=== PATIENT | male | born 1995 | race Caucasian/White ===

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

== ENCOUNTER 2017-01-27 21:59 | Emergency (ER) | payer OTHER ==
[~2017-01-27] VITALS: Ht 177.8 cm; Wt 68.2 kg
[2017-01-27 22:03] VITALS: BP 134/74; PULSE 82; RESP 16; O2SAT 99
--- NOTE | 2017-01-27 22:28 | ED.REPORT ---
HPI-Extremity Problem Lower Date of Service Jan 27, 2017 ED Provider: Jasper Ricardo DO Patient is a 21 year old male who presents to the ED after dropping a knife on the dorsum of his left foot. Associated symptoms include inability to move his toes. He states that the knife was clean. The patient reports that the knife slipped as he was trying to put it back into his hip holster. Nursing Notes Stated Complaint: DROPPED KNIFE ON LEFT FOOT Chief Complaint: Extremity Trauma Nursing Notes Reviewed: Yes Allergies: Coded Allergies: peanut (Verified Allergy, Severe, anaphylaxis, 07/08/16) Uncoded Allergies: ALMONDS (Allergy, Unknown, 01/24/14) Scheduled Amitriptyline (Amitriptyline) 25 Mg Tab 75 MG PO DAILY Fluoxetine (Fluoxetine) 20 Mg Capsule 20 MG PO MOWEFR Omeprazole (Omeprazole) 20 Mg Capsule.dr 20 MG PO DAILY Ranitidine (Ranitidine) 150 Mg Capsule 150 MG PO DAILY Scheduled PRN Promethazine (Promethazine) 25 Mg Tablet 25 MG PO Q6H PRN PRN For Nausea General Time Seen by MD: 22:28 Chief Complaint Foot injury left Hx Obtained From: Patient Arrived By: Walk-in Onset Occurred: Just prior to arrival Symptom Duration: Since onset Caused by: Accidental, Knife wound Location: : Foot left Quality: Painful Severity: Current: Moderate Recent Healthcare: Recent doctor visit Similar Sx Previous: No Past Medical History Past Medical History Syncope. PTSD-associated dissociative disorder. Past Surgical History None Family History Reviewed, not relevant Reports: Cancer Smoking History Never Smoker Social History Alcohol Use: Denies alcohol use Drug Use: Denies drug use Occupation Student Ambulatory Status Independent Review of Systems Review of Systems Note: +foot laceration Musculoskeletal: Reports: Extremity pain (left foot) Skin: Denies Itching, Denies Rash Complete sys rev & neg: except as marked. Respiratory: Denies: Non-productive cough, Shortness of breath Physical Exam Initial Vital Signs Vital Signs (First) Date Time Temp Pulse Resp B/P Pulse Ox O2 Delivery O2 Flow Rate FiO2 01/27/17 22:03 37.1 82 16 134/74 99 Room Air Initial VS: Reviewed Lower Extremity / Pelvis / MS: Atraumatic, Inspection NL Ankle / Foot: Neurologic intact, Vascular intact good dp pulses small 1/2cm laceration to the dorsum of the left foot flexion and extension normal General/Constitutional: Awake, Alert Respiratory / Chest: Atraumatic, Breath sounds NL, Breath sounds = bilat, No respiratory distress Cardiovascular: Heart rate NL, Regular rhythm, Heart sounds NL Skin: Color NL, No rash, Warm, Dry Neurologic: Oriented X3, Speech NL, No motor deficits, No sensory deficits Head / Eyes: Atraumatic, Normocephalic, PERRL, EOMI Psychiatric: Affect NL, Mood NL Interpretation & Diagnostics X-Ray Interpretation X-Ray Ordered: Foot left Interpretation / Wet Read by: Interpret - ED physician Interpretation: Normal exam, No fracture/dislocation Re-Eval/Medical Decision Med Decision/Clinical Course No appreciable tendon injury however Alverto states that his toe mainly the fourth toe feels weak when he extends it. I cannot see an obvious tendon laceration. The wound was irrigated and prepped and dressed. We will keep the wound open. We will place him in an sterile dressing. Tyree wrap and crutches. Keflex prophylactically and follow-up with podiatry. Re-Evaluation/Progress : Re-Evaluation/Progress Note: Discussed plan for discharge. Patient understands and agrees to plan. All questions were addressed. Counseled Regarding: Diagnosis, Lab results, Need for follow-up, When/why to return to ED Discharge & Departure Impression: Primary Impression: Foot laceration Encounter type: initial encounter Laterality: left Qualified Code: S91.312A - Laceration without foreign body, left foot, initial encounter Disposition: Home Discharge Condition All VS Reviewed: Yes Condition: Stable Patient Instructions: Crutch Instructions (ED) Additional Instructions: Take Keflex 2x a day for 5 days. You can take Tylenol/Motrin as directed for pain. Keep the wound covered and dry. Use crutches for the next 7 days until you follow up with podiatry. Call the referred printed products assembler tomorrow and let them know you have a foot laceration with possible tendon involvement. Return to the emergency department if you develop any new or concerning symptoms including signs of infection; spreading redness, swelling, discharge or increasing pain. Referrals: Liborio Edmonds DO (PCP) Collin Ingram DPM Scribe Attestation Portions of this note were transcribed by Chiquita Arias. I, Dr. Ricardo personally performed the history, physical exam and medical decision-making; I reviewed and confirmed the accuracy of the information in the transcribed note. Signed by: Chiquita Santana, 01/27/17 copies to: Liborio Edmonds DO; Collin Ingram DPM, Todd P DO Jan 27, 2017 22:28 Shantell Arias Jan 27, 2017 22:35
[2017-01-27] MEDS ORDERED: TdaP Vaccine 0.5 mL Inj IM ONE (23:00)
--- NOTE | 2017-01-28 13:38 | DRSVH ---
PROCEDURE: X-RAY LEFT FOOT COMPLETE, MINIMUM THREE VIEWS ([id number]) INDICATIONS: dropped knife on top of foot TECHNIQUE: 3 views of the foot were acquired. COMPARISON: None. FINDINGS: Bones: No fractures or dislocations. No suspicious bony lesions. Soft tissues: No tibiotalar joint effusion. Achilles tendon appears normal. IMPRESSION: No definite fracture or radiopaque soft tissue foreign bodies. Dictated by: Bashir Celis [facility] Interpreted: Gregor Humphrey MD on 01/28/2017 at 8:43 Approved by: Gregor Humphrey M.D. on 01/28/2017 at 13:36
== END 2017-01-28 00:25 | disposition home or self-care (01) ==
LOC: SED 21:59
DX: S91.312A Laceration without foreign body, left foot, initial encounter (principal); W26.0XXA Contact with knife, initial encounter; Y93.89 Activity, other specified; Y92.009 Unspecified place in unspecified non-institutional (private) residence as the place of occurrence of the external cause; Y99.8 Other external cause status; Z23 Encounter for immunization; Z91.010 Allergy to peanuts